=== PATIENT | male | born 1945 | race Asian ===

== ENCOUNTER 2020-03-13 15:48 | Emergency (ER) | payer OTHER ==
[~2020-03-13] VITALS: Ht 180.3 cm; Wt 70.3 kg
[2020-03-13 15:49] VITALS: BP 120/63; TEMP 97.1
[2020-03-13 16:39] LABS: PLATELET COUNT 393 K/uL (142-355)
[2020-03-13 16:55] LABS: POTASSIUM 3.4 mmol/L (3.6-5.2)
[2020-03-13] MEDS ORDERED: ASPIRIN/ENTERIC81 MG PO (17:33)
[2020-03-13] MEDS ORDERED: LORA1TAB17 PO (17:34)
[2020-03-13] MEDS ORDERED: WELLBUTRIN150 MG PO (17:35)
[2020-03-13] MEDS ORDERED: CLOP75TA2 PO (17:36)
[2020-03-13] MEDS ORDERED: FOLI1TAB26 PO (17:39)
[2020-03-13] MEDS ORDERED: LACTSYP31 PO (17:40)
[2020-03-13] MEDS ORDERED: SIMV40TA57 PO (17:41)
[2020-03-13] MEDS ORDERED: COZAAR25 MG PO (17:41)
[2020-03-13] MEDS ORDERED: SEROQUEL50 MG PO ×2 (17:43→17:44)
[2020-03-13] MEDS ORDERED: XARELTO20 MG PO (17:43)
[2020-03-13] MEDS ORDERED: BETAPACE120 MG PO (17:46)
[2020-03-13] MEDS ORDERED: CYAN10009 IM (17:50)
[2020-03-13] MEDS ORDERED: DILTIAZEM HYDRO30 MG PO ×2 (17:51→17:53)
[2020-03-13] MEDS ORDERED: IPRAAER PO (17:55)
[2020-03-13] MEDS ORDERED: DOCU100C10 PO (18:03)
[2020-03-13] MEDS ORDERED: ALUMSUS6 PO (18:05)
== END 2020-03-13 17:15 | disposition still patient (30) ==
LOC: ED 15:48
PROVIDERS: Hospitalist
DX: F03.90 Unspecified dementia, unspecified severity, without behavioral disturbance, psychotic disturbance, mood disturbance, and anxiety (principal); F25.8 Other schizoaffective disorders; R62.7 Adult failure to thrive; Z11.59 Encounter for screening for other viral diseases; Z04.6 Encounter for general psychiatric examination, requested by authority
CPT/HCPCS: 80053; 85027; 87635; 93005; 99283; U0003

== ENCOUNTER 2020-03-16 20:36 | Emergency (ER) | payer OTHER ==
[~2020-03-16] VITALS: Ht 180.3 cm; Wt 67.1 kg
[2020-03-16 20:36] VITALS: BP 116/43
[~2020-03-16 20:36] MED LIST: ALUMSUS6 PO; ASPIRIN/ENTERIC81 MG PO; BETAPACE120 MG PO; CLOP75TA2 PO; COZAAR25 MG PO; CYAN10009 IM; DILTIAZEM HYDRO30 MG PO; DOCU100C10 PO; FOLI1TAB26 PO; IPRAAER PO; LACTSYP31 PO; LORA1TAB17 PO; SEROQUEL50 MG PO; SIMV40TA57 PO; WELLBUTRIN150 MG PO; XARELTO20 MG PO
== END 2020-03-17 00:30 | disposition still patient (30) ==
LOC: ED 20:57
PROC: 5A12012 Performance of Cardiac Output, Single, Manual (ICD-10-PCS; principal; 2020-03-16)
DX: I24.9 Acute ischemic heart disease, unspecified (principal); I50.89 Other heart failure
CPT/HCPCS: 96360; 96375; 99285; J0171; J0282; J7060